=== PATIENT | male | born 1960 | race Caucasian/White ===

== ENCOUNTER 2020-06-24 09:51 | Emergency (ER) | payer SELFPAY ==
[~2020-06-24] VITALS: Ht 182.9 cm; Wt 77.6 kg
[2020-06-24 10:19] VITALS: Ht 182.9 cm; Wt 77.6 kg
[2020-06-24 14:13] VITALS: BP 162/107
== END 2020-06-24 14:13 | disposition home or self-care (01) ==
LOC: ED 09:51
DX: M54.41 Lumbago with sciatica, right side (principal)
CPT/HCPCS: J1885